=== PATIENT | female | born 1995 | race Hispanic/Latino ===

== ENCOUNTER 2019-12-06 19:54 | Inpatient (IN) | payer MEDICAID ==
[~2019-12-06] VITALS: Ht 152.4 cm; Wt 84.4 kg
[2019-12-06] MEDS ORDERED: LACTATED RINGERS 1000ML 1,000 ML IV PRN ×2 (20:16→21:56)
[2019-12-06] MEDS ORDERED: ROPIVACAINE 0.2% 100ML VIAL 100 ML EP PRN (20:30)
[2019-12-06] MEDS ORDERED: LACTATED RINGERS 500 ML 500 ML IV PRN (20:30)
[2019-12-06] MEDS ORDERED: MEPERIDINE-PF 50 MG/ML SYG IVP PRN (20:30)
[2019-12-06] MEDS ORDERED: PROMETHAZINE HCL 25 MG/ML 1ML AMPULE IM PRN (20:30)
[2019-12-06] MEDS ORDERED: AMPICILLIN 2GM+NS 100ML 100 ML IV SCH (20:30)
[2019-12-06] MEDS ORDERED: NALOXONE HCL 0.4 MG/1 ML ML IV PRN (20:30)
[2019-12-06] MEDS ORDERED: EPHEDRINE SULFATE 50 MG/ML AMPULE IVP PRN (20:30)
[2019-12-06 20:36] LABS: APPEARANCE,URINE Clear (CLEAR); BILIRUBIN,URINE Negative (NEGATIVE); COLOR,URINE Dark Yellow (YELLOW); GLUCOSE, URINE (UA) Negative (NEGATIVE); KETONES,URINE Trace mg/dL (NEGATIVE); LEUKOCYTE ESTERASE ,URINE Negative (NEGATIVE); NITRATE,URINE Negative (NEGATIVE); OCCULT BLOOD,URINE Negative (NEGATIVE); PH,URINE 6.5 (5.0-8.0); PROTEIN,URINE POS 2+ mg/dL (NEGATIVE)
[2019-12-06] MEDS ORDERED: OXYTOCIN-LR 20 UNITS/1000 ML 1,000 ML IV SCH (20:45)
[2019-12-06 20:46] LABS: BACTERIA,URINE Few /HPF (None Seen); MUCUS,URINE Moderate LPF (None Seen); RBC,URINE 0-1 /HPF (0-1); SQUAMOUS EPITHELIAL CELL,UR Few /HPF (0-2); WBC,URINE 0-1 /HPF (0-1)
[2019-12-06 20:47] LABS: HYALINE CASTS, URINE 0-1 /LPF (0-1 /LPF)
[2019-12-06 21:00] LABS: HEMATOCRIT 24.6 % (36-48); MEAN CORPUSCULAR HEMOGLOBIN 19.2 pg (27.0-33.0); MEAN CORPUSCULAR HGB CONC 28.9 g/dL (32.0-36.0); MEAN CORPUSCULAR VOLUME 66.5 fL (79-99); PLATELET COUNT (AUTO) 299 K/uL (130-400); RED CELL DISTRIBUTION WIDTH 17.6 % (11.0-15.5); WHITE BLOOD COUNT (AUTO) 8.2 K/uL (4.8-10.8)
[2019-12-07] MEDS: AMPICILLIN 1GM+NS 50ML 50 ML IV SCH ×3 (00:41→08:30)
[2019-12-07 05:57] LABS: CARBON DIOXIDE 23 mmol/L (21-32); CHLORIDE 105 mmol/L (101-111); CREATININE 0.7 mg/dL (0.5-1.5); GLOMERULAR FILTR. RATE CALC 109 mL/min (>60); GLUCOSE,RANDOM 77 mg/dL (70-105); SODIUM SERUM 137 mmol/L (136-145); UREA NITROGEN, BLOOD 11 mg/dL (7-18)
[2019-12-07 06:04] LABS: INR 0.9 (0.85-1.15); PARTIAL THROMBOPLASTIN TIME 25.9 SEC (26.3-35.5); PROTHROMBIN TIME 9.8 SEC (9.6-11.6)
[2019-12-07 06:05] LABS: ALBUMIN 2.2 g/dL (3.5-5.0); ASPARTATE AMINOTRANSFERASE 16 U/L (10-37); BILIRUBIN,TOTAL 0.2 mg/dL (0.2-1.0); TOTAL PROTEIN, SERUM 5.9 g/dL (6.0-8.3); URIC ACID 4.2 mg/dL (2.6-7.2)
[2019-12-07 06:23] LABS: ALANINE AMINOTRANSFERASE < 6 U/L (12-78)
[2019-12-07] MEDS ORDERED: MISOPROSTOL 200 MCG TABLET ONE (09:03)
[2019-12-07] MEDS ORDERED: ROPIVACAINE 0.2% 100ML VIAL 100 ML EP SCH (10:00)
[2019-12-07] MEDS ORDERED: FENTANYL CITRATE PF 50 MCG/1 ML 2ML VIAL ONE (10:39)
[2019-12-07] MEDS ORDERED: LANOLIN 30GM OINTMENT TP PRN (11:15)
[2019-12-07] MEDS ORDERED: BENZOCAINE/LANOLIN/ALOE VERA 60 ML AEROSOL TP PRN (11:15)
[2019-12-07] MEDS ORDERED: WITCH HAZEL 1 PAD TP PRN (11:15)
[2019-12-07] MEDS ORDERED: ACETAMINOPHEN-CODEINE 300/30MG TAB PO PRN (11:15)
[2019-12-07] MEDS ORDERED: DIPH,PERTUSS(ACELL),TET VAC/PF 0.5 ML VIAL IM PRN (11:15)
[2019-12-07] MEDS ORDERED: ACETAMINOPHEN 325 MG TAB PO PRN (11:15)
[2019-12-07] MEDS ORDERED: MEASLES/MUMPS/RUBELLA VACCINE, LIVE 0.5 ML/VIAL SQ PRN (11:15)
[2019-12-07] MEDS ORDERED: OXYTOCIN-LR 20 UNITS/1000 ML 1,000 ML IV SCH (11:15)
[2019-12-07] MEDS: IBUPROFEN 600 MG TABLET PO PRN ×2 (11:26→20:34)
[2019-12-07 13:28] VITALS: BP 136/78
[2019-12-07 16:39] VITALS: BP 153/83
[2019-12-07 20:08] VITALS: BP 147/74
[2019-12-07] MEDS: DOCUSATE SODIUM 100 MG CAP PO SCH (20:33)
[2019-12-07 23:42] VITALS: BP 117/61
[2019-12-08] MEDS: AMPICILLIN 1GM+NS 50ML 50 ML IV SCH (00:30)
[2019-12-08 03:37] VITALS: BP 126/69
[2019-12-08 06:42] LABS: HEMATOCRIT 21.4 % (36-48); MEAN CORPUSCULAR HEMOGLOBIN 19.1 pg (27.0-33.0); NUCLEATED RED BLOOD CELLS 0.2 % (0.0-0.19); RED BLOOD CELL COUNT(AUTO) 3.24 MIL/uL (4.00-5.50); RED CELL DISTRIBUTION WIDTH 17.6 % (11.0-15.5); WHITE BLOOD COUNT (AUTO) 8.7 K/uL (4.8-10.8)
--- NOTE | 2019-12-08 06:50 | NUR ---
Communication; Dr. Vargas called via telephone informed of patient CBC result WBC 8.7/6.2 hemoglobin/21.4 hematocrit and 255 platelet. Received order to let patient get up and ambulate see if patient is symptomatic. She said, " she will come to check the patient."
--- NOTE | 2019-12-08 06:55 | NUR ---
Activity; Patient ambulated inside the room fro 15 minutes she denies any symptoms of dizziness.
[2019-12-08 07:46] VITALS: BP 140/83
[2019-12-08] MEDS: DOCUSATE SODIUM 100 MG CAP PO SCH (08:51)
[2019-12-08] MEDS: IBUPROFEN 600 MG TABLET PO PRN (08:52)
[2019-12-08 10:14] LABS: HEPATITIS Bs ANTIGEN SCREEN P Negative (Negative)
--- NOTE | 2019-12-08 11:25 | NUR ---
SPOKE WITH DR. ALTMAN. PATIENT OKAY TO BE DISCHARGED TODAY.
--- NOTE | 2019-12-08 12:00 | NUR ---
PATIENT LEFT UNIT VIA WHEELCHAIR WITH BABY IN ARMS. PERSONAL VEHICLE USED FOR TRANSPORTATION ACCOMPANIED BY SIGNIFICANT OTHER. BABY SECURE IN CARSEAT. NO COMPLAINTS OR CONCERNS ADDRESSED FROM PATIENT ON DISCHARGE.
== END 2019-12-08 12:00 | disposition home or self-care (01) | DRG 560 ==
LOC: LDH 19:54 → WSH 12-07 13:30
PROVIDERS: ADMIT Obstetrics & Gynecology; ATTEND Obstetrics & Gynecology
PROC: 10E0XZZ Delivery of Products of Conception, External Approach (ICD-10-PCS; principal; 2019-12-07)
PROC: 3E033VJ Introduction of Other Hormone into Peripheral Vein, Percutaneous Approach (ICD-10-PCS; 2019-12-07)
PROC: 10907ZC Drainage of Amniotic Fluid, Therapeutic from Products of Conception, Via Natural or Artificial Opening (ICD-10-PCS; 2019-12-07)
PROC: 3E0R3BZ Introduction of Anesthetic Agent into Spinal Canal, Percutaneous Approach (ICD-10-PCS; 2019-12-07)
PROC: 00HU33Z Insertion of Infusion Device into Spinal Canal, Percutaneous Approach (ICD-10-PCS; 2019-12-07)
DX: O99.824 Streptococcus B carrier state complicating childbirth (principal); Z3A.39 39 weeks gestation of pregnancy; Z37.0 Single live birth; O71.82 Other specified trauma to perineum and vulva; O99.02 Anemia complicating childbirth; D64.9 Anemia, unspecified
CPT/HCPCS: 36415; 80053; 81001; 84550; 85027; 85384; 85610; 85730; 86592; 86701; 86850; 86900; 86901; 86922; 87340; 87390; G0378; J0290; J2590; J2795; J3010; J7120

== ENCOUNTER 2023-06-24 10:43 | Observation (INO) | payer MEDICAID, OTHER ==
[~2023-06-24] VITALS: Ht 162.6 cm; Wt 75.3 kg
[2023-06-24 10:45] VITALS: BP 122/78; PULSE 76; RESP 18
[2023-06-24 12:18] LABS: HEMATOCRIT 29.2 % (36-48); MEAN CORPUSCULAR HEMOGLOBIN 23.6 pg (27.0-33.0); MEAN CORPUSCULAR HGB CONC 32.2 g/dL (32.0-36.0); MEAN CORPUSCULAR VOLUME 73.4 fL (79-99); PLATELET COUNT (AUTO) 348 K/uL (130-400); RED BLOOD CELL COUNT(AUTO) 3.98 MIL/uL (4.00-5.50); RED CELL DISTRIBUTION WIDTH 15.1 % (11.0-15.5); WHITE BLOOD COUNT (AUTO) 7.7 K/uL (4.8-10.8)
[2023-06-24 13:03] LABS: INR <= 0.93 (0.85-1.15); PROTHROMBIN TIME 10.3 SEC (9.6-11.6)
[2023-06-24 13:04] LABS: PARTIAL THROMBOPLASTIN TIME 28.7 SEC (26.3-35.5)
[2023-06-24 13:07] LABS: FIBRINOGEN 469 mg/dL (180-350)
[2023-06-24 13:45] LABS: D-DIMER 1003 ng/mL (0-500)
[2023-06-24 13:46] LABS: PLATELET COUNT (AUTO) 348 K/uL (130-400)
[2023-06-24] MEDS: LACTATED RINGERS 1000ML 1,000 ML IV SCH (20:38)
[2023-06-24] MEDS: LACTATED RINGERS 1000ML 1,000 ML IV ONE (20:38)
[2023-06-24] MEDS: TERBUTALINE SULFATE VIAL 1MG/ML SQ ONE (21:26)
== END 2023-06-25 11:20 | disposition home or self-care (01) ==
LOC: EDH 10:43 → LDH 10:44
PROVIDERS: ADMIT Obstetrics & Gynecology; ATTEND Obstetrics & Gynecology
DX: O62.9 Abnormality of forces of labor, unspecified (principal); O99.283 Endocrine, nutritional and metabolic diseases complicating pregnancy, third trimester; O99.013 Anemia complicating pregnancy, third trimester; O26.893 Other specified pregnancy related conditions, third trimester; R10.30 Lower abdominal pain, unspecified; D64.9 Anemia, unspecified; E05.90 Thyrotoxicosis, unspecified without thyrotoxic crisis or storm; M19.90 Unspecified osteoarthritis, unspecified site; Z3A.31 31 weeks gestation of pregnancy; V49.9XXA Car occupant (driver) (passenger) injured in unspecified traffic accident, initial encounter; Y93.89 Activity, other specified; Y92.488 Other paved roadways as the place of occurrence of the external cause; Y99.8 Other external cause status
CPT/HCPCS: 96372; 96360; 96361 ×2; 99284; 85027; 85378; 85384; 85610; 85730; 86850; 86900; 86922; 86901; 86905; 86870; 36415; 76819; 76805; G0378 ×24; J7120 ×5; J3105; 59025